=== PATIENT | female | born 1955 | race Caucasian/White ===

== ENCOUNTER 2016-08-01 03:41 | Emergency (ER) | payer OTHER ==
[2016-08-01 03:51] VITALS: BP 149/76
--- NOTE | 2016-08-01 04:06 | EDM.PDOC ---
ED HPI GENERAL MEDICAL PROBLEM - General Chief Complaint: Allergic Reaction Stated Complaint: ALLERGIC REACTION Time Seen by Provider: 08/01/16 04:06 - History of Present Illness INITIAL COMMENTS - FREE TEXT/NARRATIVE: 61-year-old female presents emergency room with hives and itching. Started a couple hours ago, [place] The patient has had problems like this in the past she took 20 mg of prednisone 20 mg of loratadine 25 mg of Benadryl and 150 mg of Zantac. She is doing much better at this time she has minimal itching of her hands and feet. When she broke out in hives it was from head to toe her said she was splotchy red. The patient has not had a rash like this last year or thus far this year until now in 2014 she had a couple of rashes like this one of which involved swelling of the lips. The cause of this is believed to be environmental, however she's never had any formal testing. - Related Data Allergies Allergy/AdvReac Type Severity Reaction Status Date / Time morphine Allergy Vomiting Verified 08/01/16 03:52 venom-wasp [wasp venom] Allergy Swelling Verified 09/04/14 04:39 Past Medical History Other Respiratory History: allergic reaction with throat issues Social & Family History - Tobacco Use Smoking Status *Q: Never Smoker Second Hand Smoke Exposure: No - Recreational Drug Use Recreational Drug Use: No ED ROS ALLERGIC REACTION - Review of Systems Review Of Systems: See Below Constitutional: Reports: No Symptoms HEENT: Reports: No Symptoms Respiratory: Reports: No Symptoms. Denies: Shortness of Breath Cardiovascular: Reports: No Symptoms Endocrine: Reports: No Symptoms GI/Abdominal: Reports: No Symptoms : Reports: No Symptoms Musculoskeletal: Reports: No Symptoms Skin: Reports: Urticaria Neurological: Reports: No Symptoms ED EXAM GENERAL NO PERIP PULSE - Physical Exam Exam: See Below Exam Limited By: No Limitations General Appearance: Alert, No Apparent Distress Eye Exam: Bilateral Eye: Normal Inspection Ears: Normal External Exam, Normal Canal, Hearing Grossly Normal, Normal TMs Nose: Normal Inspection, Normal Mucosa, No Blood Throat/Mouth: Normal Inspection, Normal Lips, Normal Teeth, Normal Gums, Normal Oropharynx, Normal Voice, No Airway Compromise Head: Atraumatic, Normocephalic Neck: Normal Inspection, Supple, Non-Tender, Full Range of Motion. No: Lymphadenopathy (L), Lymphadenopathy (R) Respiratory/Chest: No Respiratory Distress, Lungs Clear, Normal Breath Sounds Cardiovascular: Regular Rate, Rhythm, No Edema, No Murmur GI/Abdominal: Normal Bowel Sounds, Soft, Non-Tender Back Exam: Normal Inspection. No: CVA Tenderness (L), CVA Tenderness (R) Extremities: Normal Inspection, No Pedal Edema Skin Exam: Other (No hives at this point she has some itching on the tops of her hand and feet otherwise is symptom-free at this time) Course - Vital Signs Last Recorded V/S: Last Vital Signs Temp 36.2 C 08/01/16 03:48 Pulse 68 08/01/16 03:48 Resp 16 08/01/16 03:48 BP 149/76 H 08/01/16 03:48 Pulse Ox 93 L 08/01/16 03:48 - Orders/Labs/Meds Meds: Medications Discontinued Medications Generic Name Dose Route Start Last Admin Trade Name Freq PRN Reason Stop Dose Admin Famotidine 20 mg 08/01/16 04:35 08/01/16 05:34 Pepcid PO 08/01/16 04:36 20 mg ONETIME ONE Administration Prednisone 40 mg 08/01/16 04:35 08/01/16 05:34 Prednisone PO 08/01/16 04:36 40 mg ONETIME ONE Administration - Re-Assessments/Exams Free Text/Narrative Re-Assessment/Exam: 08/01/16 04:47 The patient will be given another additional 20 mg of Pepcid and 40 mg of prednisone and we will observe. 08/01/16 05:37 Patient continues to do well, she is symptom-free at this point. The patient is fairly insistent on going home at this time as work schedules demand this. Departure - Departure Time of Disposition: 05:38 Disposition: Home, Self-Care 01 Clinical Impression: Hives - Discharge Information Forms: ED Department Discharge Additional Instructions: Return to the emergency room with any questions or problems. Take Pepcid 20 mg twice daily for one week and then decrease to once daily. Take loratadine 10 mg daily. You have prednisone take 60 mg for the next 2 mornings then stop. Benadryl 25 mg 4 times a day as needed. Followup with your punch operator on the eighth as scheduled. I would recommend testing to find what is causing this.
[2016-08-01] MEDS ORDERED: predniSONE 20 MG Tab PO ONE (04:35)
[2016-08-01] MEDS ORDERED: Famotidine 20 MG Tab PO ONE (04:35)
== END 2016-08-01 05:43 | disposition home or self-care (01) ==
LOC: JD.ED 03:41
DX: L50.9 Urticaria, unspecified (principal); Z88.5 Allergy status to narcotic agent; Z91.038 Other insect allergy status
CPT/HCPCS: 99283; A9270

== ENCOUNTER 2020-05-13 07:47 | Emergency (ER) | payer MEDICARE, BC ==
[2020-05-13 08:04] VITALS: BP 124/73; PULSE 70
--- NOTE | 2020-05-13 08:06 | EDM.PDOC ---
ED HPI GENERAL MEDICAL PROBLEM - General Chief Complaint: Chest Pain Stated Complaint: LT SHOULDER AND ARM PAIN SENT BY [facility] Time Seen by Provider: 05/13/20 08:01 Source of Information: Reports: Patient, RN Notes Reviewed - History of Present Illness INITIAL COMMENTS - FREE TEXT/NARRATIVE: 65 yr old female with onset of achy pain mid and L chest that evening that has continued through the night. No current cough, difficulty breathing. Had covid 3 wks ago with mild illness, cleared 2 wks ago. No personal hx of medical problems other that occasional GERD. To her this feels different. No abd pain, nausea or vomiting. Left Shoulder Pain Score (Numeric/FACES): 4 - Related Data Allergies Allergy/AdvReac Type Severity Reaction Status Date / Time morphine Allergy Vomiting Verified 05/13/20 08:04 venom-wasp [wasp venom] Allergy Swelling Verified 05/13/20 08:04 Home Meds: Home Meds Ascorbic Acid [Vitamin C] 1 tab PO DAILY 05/13/20 [History] Elderberry Fruit and Flower [Black Elderberry 575 mg Cap] 1 tab PO DAILY 05/13/20 [History] Zinc 1 tab PO DAILY 05/13/20 [History] Past Medical History Respiratory History: Reports: Other (See Below) Other Respiratory History: allergic reaction with throat issues Psychiatric History: Reports: Other (See Below) Other Psychiatric History: insomnia Social & Family History - Family History Family Medical History: No Pertinent Family History ED ROS GENERAL - Review of Systems Review Of Systems: See Below Constitutional: Denies: Fever, Chills, Diaphoresis HEENT: Reports: No Symptoms Respiratory: Denies: Shortness of Breath Cardiovascular: Denies: Chest Pain GI/Abdominal: Denies: Abdominal Pain, Nausea, Vomiting Musculoskeletal: Reports: Shoulder Pain (mild, gone) Skin: Reports: No Symptoms Neurological: Reports: No Symptoms ED EXAM, GENERAL - Physical Exam Exam: See Below General Appearance: Alert, No Apparent Distress Head: Atraumatic Neck: Supple Respiratory/Chest: No Respiratory Distress, Lungs Clear, Normal Breath Sounds, Chest Non-Tender Cardiovascular: Regular Rate, Rhythm GI/Abdominal: Soft, Non-Tender. No: Guarding Extremities: No: Pedal Edema, Leg Pain, Increased Warmth, Redness Skin Exam: Warm, Dry, Normal Color #1 Interpretation EKG Date: 05/13/20 Rhythm: NSR [place]: Normal P-Wave: Present QRS: Normal ST-T: Normal QT: Normal Course - Vital Signs Last Recorded V/S: Last Vital Signs Temp 98.2 F 05/13/20 07:58 Pulse 70 05/13/20 07:58 Resp 16 05/13/20 07:58 BP 124/73 05/13/20 07:58 Pulse Ox 97 05/13/20 07:58 - Orders/Labs/Meds Labs: Laboratory Tests 05/13/20 Range/Units 08:29 Troponin I < 0.017 (0.00-0.056) ng/mL - Re-Assessments/Exams Free Text/Narrative Re-Assessment/Exam: 05/13/20 16:53 trop, CXR, EKG normal Departure - Departure Time of Disposition: 10:01 Disposition: Home, Self-Care 01 Condition: Fair Clinical Impression: Atypical chest pain Instructions: Nonspecific Chest Pain, Adult, [id number] Referrals: Lela Wilson CLOCK REPAIR TECHNICIAN [Primary Care Provider] - Forms: ED Department Discharge Additional Instructions: Alternate tylenol and aleve or ibuprofen as needed. Continue to work with heat and ice as needed. Follow up clinic if not resolving as expected. Return to ED as needed if symptoms worsening in any way. Sepsis Event Note (ED) - Evaluation Sepsis Screening Result: No Definite Risk - Focused Exam Vital Signs: Vital Signs Temp Pulse Resp BP Pulse Ox 05/13/20 07:58 98.2 F 70 16 124/73 97
--- NOTE | 2020-05-13 09:36 | CR ---
Chest: Portable view of the chest was obtained. Comparison: No prior chest imaging is available. Heart size and mediastinum are normal. Minimal atelectasis within the right lung base is seen. Lungs otherwise are clear. Bony structures are grossly intact. Impression: 1. Nothing acute is appreciated on portable chest x-ray. Diagnostic code #2
== END 2020-05-13 10:19 | disposition home or self-care (01) ==
LOC: JD.ED 07:47
DX: R07.89 Other chest pain (principal); Z88.5 Allergy status to narcotic agent; Z91.030 Bee allergy status
CPT/HCPCS: 36415; 71045; 71045-26; 84484; 93005; 93010; 99282; 99285-25